=== PATIENT | female | born 1945 | race Two or more races ===

== ENCOUNTER → 2018-04-09 | Outpatient (CLI) | payer OTHER ==
[~2018-04-09] MED LIST: None per pt
[2018-04-09 11:35] LABS: BASOPHILS # (AUTO) 0.03 x10^3/uL (0-0.1); BASOPHILS % (AUTO) 0 % (0-1); EOSINOPHILS # (AUTO) 0.17 x10^3/uL (0-0.4); EOSINOPHILS % (AUTO) 3 % (1-7); LYMPHOCYTES # (AUTO) 1.88 x10^3/uL (1-3.4); LYMPHOCYTES % (AUTO) 33 % (22-44); MD NO; MEAN CORPUSCULAR HGB CONC 33.2 g/dL (32.4-35.8); MEAN CORPUSCULAR VOLUME 93.1 fL (80-100); MEAN PLATELET VOLUME 8.1 fL (7.4-10.4); MONOCYTES # (AUTO) 0.44 x10^3/uL (0.2-0.8); MONOCYTES % (AUTO) 8 % (2-9); NEUTROPHILS # (AUTO) 3.26 x10^3/uL (1.8-6.8); NEUTROPHILS % (AUTO) 57 % (42-75); PLATELET COUNT 247 x10^3/uL (130-400); RED BLOOD COUNT 4.55 x10^6/uL (3.82-5.3); RED CELL DISTRIBUTION WIDTH 14.2 % (9.6-15.2)
[2018-04-09 11:44] LABS: INTERNATIONAL NORMALIZED RATIO 0.96 (0.93-1.1); PROTHROMBIN TIME 10.2 Seconds (9.6-11.5)
[2018-04-09 11:49] LABS: CHLORIDE 105 mmol/L (98-107)
[2018-04-09 12:02] LABS: ALANINE AMINOTRANSFERASE 27 U/L (12-78); ALBUMIN 3.5 g/dL (3.4-5.0); ALKALINE PHOSPHATASE 49 U/L (45-117); ANION GAP 7 mmol/L (5-15); BILIRUBIN,TOTAL 0.4 mg/dL (0.2-1.0); CALCIUM 8.8 mg/dL (8.5-10.1); CREATININE 0.63 mg/dL (0.55-1.02)
== END | disposition home or self-care (01) ==
LOC: STAR 10:14
PROVIDERS: ATTEND Specialist
DX: Z01.818 Encounter for other preprocedural examination (principal); R19.01 Right upper quadrant abdominal swelling, mass and lump; R97.1 Elevated cancer antigen 125 [CA 125]
CPT/HCPCS: 36415; 71046; 80053; 85025; 85610; 85730; 93005

== ENCOUNTER 2018-04-16 12:07 | Inpatient (IN) | payer OTHER ==
[~2018-04-16] VITALS: Ht 162.6 cm; Wt 82.8 kg
[2018-04-16] MEDS ORDERED: LACTATED RINGERS 1,000 ML IV SCH (12:50)
[2018-04-16] MEDS ORDERED: ONDANSETRON ODT 8 MG PO ONE (13:00)
[2018-04-16] MEDS ORDERED: ACETAMINOPHEN 500 MG TABLET PO ONE (13:00)
[2018-04-16] MEDS ORDERED: GABAPENTIN 300 MG CAPSULE PO ONE (13:00)
[2018-04-16] MEDS ORDERED: SUCCINYLCHOLINE 20 MG/ML, 10ML ONE (15:55)
[2018-04-16] MEDS ORDERED: MIDAZOLAM 1 MG/ML, 2ML ONE (15:55)
[2018-04-16] MEDS ORDERED: FENTANYL PF 100 MCG/2ML ONE ×2 (15:55→19:34)
[2018-04-16] MEDS ORDERED: PROPOFOL 10 MG/ML, 20ML ONE (15:55)
[2018-04-16] MEDS ORDERED: ROCURONIUM 10MG/ML,5ML ONE (15:56)
[2018-04-16] MEDS ORDERED: DEXAMETHASONE 4 MG/ML, 1ML ONE ×2 (15:56)
[2018-04-16] MEDS ORDERED: CEFAZOLIN 1,000 MG ONE ×2 (15:56)
[2018-04-16] MEDS ORDERED: EPHEDRINE 50 MG/ML, 1ML ONE (16:53)
[2018-04-16] MEDS ORDERED: KETAMINE 10 MG/ML, 20ML ONE (16:53)
[2018-04-16] MEDS ORDERED: LIDOCAINE 2% 100MG/5ML SYRINGE ONE (16:53)
[2018-04-16] MEDS ORDERED: SCOPOLAMINE PATCH, 1.5MG PATCH.TD72 TD PRN (17:30)
[2018-04-16] MEDS ORDERED: hydrALAzine 20 MG/ML, 1ML IV PRN (17:30)
[2018-04-16] MEDS ORDERED: MEPERIDINE/PF 25MG/0.5ML IVPush PRN (17:30)
[2018-04-16] MEDS ORDERED: DIAZEPAM 5 MG/ML, 2ML IVPush PRN (17:30)
[2018-04-16] MEDS ORDERED: LABETALOL 5MG/ML, 20ML IV PRN (17:30)
[2018-04-16] MEDS ORDERED: LORazepam 2 MG/ML, 1ML IVPush PRN (17:30)
[2018-04-16] MEDS ORDERED: FENTANYL PF 100 MCG/2ML IV PRN (17:30)
[2018-04-16] MEDS ORDERED: METOCLOPRAMIDE 5 MG/ML, 2ML IV PRN (17:30)
[2018-04-16] MEDS ORDERED: OXYcodone 5 MG/5 ML ORAL.SOL UDC PO PRN (17:30)
[2018-04-16] MEDS ORDERED: HYDROmorphone 1 MG/ML, 1ML IV PRN (17:30)
[2018-04-16] MEDS ORDERED: ALBUMIN HUMAN 25% 50 ML ONE (21:38)
[2018-04-16] MEDS ORDERED: ALBUMIN HUMAN 25% 50 ML IV SCH (22:00)
[2018-04-16] MEDS ORDERED: LACTATED RINGERS 500 ML IVBOLUS ONE (22:00)
[2018-04-16] MEDS: KETOROLAC 30 MG/1 ML IVPush SCH (23:30)
[2018-04-16] MEDS: FAMOTIDINE 20 MG/2 ML IV SCH (23:30)
[2018-04-16] MEDS: POTASSIUM CHLORIDE 20 MEQ in D5%-0.45% NACL 1,000 ML IV SCH (23:37)
[2018-04-17 00:12] VITALS: BP 105/71
[2018-04-17 04:09] VITALS: BP 94/61
[2018-04-17 06:08] LABS: BASOPHILS % (AUTO) 0 % (0-1); EOSINOPHILS % (AUTO) 0 % (1-7); LYMPHOCYTES # (AUTO) 0.61 x10^3/uL (1-3.4); LYMPHOCYTES % (AUTO) 7 % (22-44); MD NO; MEAN CORPUSCULAR HEMOGLOBIN 31.3 pg (27.0-34.8); MEAN CORPUSCULAR HGB CONC 33.5 g/dL (32.4-35.8); MEAN CORPUSCULAR VOLUME 93.3 fL (80-100); MEAN PLATELET VOLUME 8.6 fL (7.4-10.4); MONOCYTES # (AUTO) 0.73 x10^3/uL (0.2-0.8); MONOCYTES % (AUTO) 8 % (2-9); NEUTROPHILS # (AUTO) 7.61 x10^3/uL (1.8-6.8); NEUTROPHILS % (AUTO) 85 % (42-75); PLATELET COUNT 247 x10^3/uL (130-400); RED BLOOD COUNT 3.94 x10^6/uL (3.82-5.3); RED CELL DISTRIBUTION WIDTH 13.7 % (9.6-15.2)
[2018-04-17 06:15] LABS: ALBUMIN 2.8 g/dL (3.4-5.0); ANION GAP 10 mmol/L (5-15); CALCIUM 7.6 mg/dL (8.5-10.1); CHLORIDE 105 mmol/L (98-107); CREATININE 1.26 mg/dL (0.55-1.02)
[2018-04-17] MEDS: POTASSIUM CHLORIDE 20 MEQ in D5%-0.45% NACL 1,000 ML IV SCH (06:25)
[2018-04-17] MEDS: KETOROLAC 30 MG/1 ML IVPush SCH ×3 (06:26→21:11)
[2018-04-17 07:13] VITALS: BP 108/63
[2018-04-17] MEDS ORDERED: SODIUM CHLORIDE 0.9%, 500ML IVBOLUS ONE ×2 (09:30→17:00)
[2018-04-17] MEDS: FAMOTIDINE 20 MG/2 ML IV SCH ×2 (09:41→21:11)
[2018-04-17] MEDS: ONDANSETRON 2MG/ML, 2ML IVPush PRN (11:28)
[2018-04-17] MEDS: SODIUM CHLORIDE 0.9% 1,000 ML IV SCH ×2 (11:31→18:35)
[2018-04-17 14:50] VITALS: BP 113/66
[2018-04-17 19:08] VITALS: BP 118/69
[2018-04-18] MEDS: SODIUM CHLORIDE 0.9% 1,000 ML IV SCH ×4 (01:25→23:03)
[2018-04-18 03:45] VITALS: BP 112/62
[2018-04-18] MEDS: KETOROLAC 30 MG/1 ML IVPush SCH ×3 (04:02→15:12)
[2018-04-18 04:20] LABS: BASOPHILS % (AUTO) 0 % (0-1); EOSINOPHILS # (AUTO) 0.02 x10^3/uL (0-0.4); EOSINOPHILS % (AUTO) 0 % (1-7); LYMPHOCYTES # (AUTO) 1.04 x10^3/uL (1-3.4); LYMPHOCYTES % (AUTO) 15 % (22-44); MD NO; MEAN CORPUSCULAR HEMOGLOBIN 30.2 pg (27.0-34.8); MEAN CORPUSCULAR HGB CONC 32.7 g/dL (32.4-35.8); MEAN CORPUSCULAR VOLUME 92.4 fL (80-100); MEAN PLATELET VOLUME 8.2 fL (7.4-10.4); MONOCYTES % (AUTO) 9 % (2-9); NEUTROPHILS # (AUTO) 5.09 x10^3/uL (1.8-6.8); NEUTROPHILS % (AUTO) 75 % (42-75); PLATELET COUNT 174 x10^3/uL (130-400); RED BLOOD COUNT 3.07 x10^6/uL (3.82-5.3); RED CELL DISTRIBUTION WIDTH 13.7 % (9.6-15.2)
[2018-04-18 08:35] VITALS: BP 108/70
[2018-04-18] MEDS: FAMOTIDINE 20 MG/2 ML IV SCH ×2 (08:48→23:02)
[2018-04-18 13:38] VITALS: BP 119/71
[2018-04-18 18:44] VITALS: BP 120/79
[2018-04-19 01:11] VITALS: BP 117/80
[2018-04-19] MEDS: SODIUM CHLORIDE 0.9% 1,000 ML IV SCH ×4 (05:08→23:59)
[2018-04-19 05:17] LABS: MEAN CORPUSCULAR HEMOGLOBIN 30.9 pg (27.0-34.8); MEAN CORPUSCULAR HGB CONC 33.5 g/dL (32.4-35.8); MEAN CORPUSCULAR VOLUME 92.4 fL (80-100); MEAN PLATELET VOLUME 8.1 fL (7.4-10.4); PLATELET COUNT 142 x10^3/uL (130-400); RED BLOOD COUNT 2.77 x10^6/uL (3.82-5.3); RED CELL DISTRIBUTION WIDTH 13.3 % (9.6-15.2)
[2018-04-19 05:22] LABS: ANION GAP 8 mmol/L (5-15); CALCIUM 7.2 mg/dL (8.5-10.1); CHLORIDE 111 mmol/L (98-107); CREATININE 0.49 mg/dL (0.55-1.02)
[2018-04-19 05:46] LABS: MD YES
[2018-04-19 05:52] LABS: <PLATELET ESTIMATE> ADEQUATE; ANISOCYTOSIS 1+; BAND#(MANUAL) 0.65 x10^3/uL; BANDS%(MANUAL) 11 % (0-7); LYMPH#(MANUAL) 0.77 x10^3/uL (1-3.4); LYMPHS% (MANUAL) 13 % (22-44); MONOS#(MANUAL) 0.18 x10^3/uL (0.3-2.7); MONOS% (MANUAL) 3 % (2-9); OVALOCYTES 1+; SEG#(MANUAL) 4.31 x10^3/uL (1.8-6.8); SEGS% (MANUAL) 73 % (42-75)
[2018-04-19 05:53] LABS: <PLT MORPHOLOGY> NORMAL PLT MORPH
[2018-04-19 07:50] VITALS: BP 117/73
[2018-04-19] MEDS: FAMOTIDINE 20 MG/2 ML IV SCH ×2 (08:53→21:07)
[2018-04-19] MEDS: ONDANSETRON 2MG/ML, 2ML IVPush PRN (11:37)
[2018-04-19 13:10] VITALS: BP 127/77
[2018-04-19] MEDS: PROCHLORPERAZINE 5 MG/ML, 2ML IVPush PRN (13:21)
[2018-04-19] MEDS ORDERED: KETOROLAC 30 MG/1 ML IVPush PRN (13:30)
[2018-04-19 19:03] VITALS: BP 119/74
[2018-04-20 00:01] VITALS: BP 112/77
[2018-04-20 05:22] LABS: MEAN CORPUSCULAR HEMOGLOBIN 31.3 pg (27.0-34.8); MEAN CORPUSCULAR HGB CONC 33.5 g/dL (32.4-35.8); MEAN CORPUSCULAR VOLUME 93.5 fL (80-100); MEAN PLATELET VOLUME 8.1 fL (7.4-10.4); PLATELET COUNT 184 x10^3/uL (130-400); RED BLOOD COUNT 2.98 x10^6/uL (3.82-5.3); RED CELL DISTRIBUTION WIDTH 13.4 % (9.6-15.2)
[2018-04-20 05:24] LABS: CHLORIDE 114 mmol/L (98-107)
[2018-04-20 05:34] LABS: ALANINE AMINOTRANSFERASE 16 U/L (12-78); ALBUMIN 1.8 g/dL (3.4-5.0); ALKALINE PHOSPHATASE 28 U/L (45-117); ANION GAP 12 mmol/L (5-15); BILIRUBIN,TOTAL 0.5 mg/dL (0.2-1.0); CALCIUM 7.7 mg/dL (8.5-10.1); CREATININE 0.48 mg/dL (0.55-1.02)
[2018-04-20 05:47] LABS: MD YES
[2018-04-20 05:53] LABS: BAND#(MANUAL) 1.25 x10^3/uL; BANDS%(MANUAL) 32 % (0-7); EOS% (MANUAL) 5 % (1-7); LYMPH#(MANUAL) 0.82 x10^3/uL (1-3.4); LYMPHS% (MANUAL) 21 % (22-44); METAMYELOCYTES# (MANUAL) 0.12 x10^3/uL (0-0); METAMYELOCYTES% (MANUAL) 3 % (0-1); MONOS#(MANUAL) 0.47 x10^3/uL (0.3-2.7); MONOS% (MANUAL) 12 % (2-9); SEG#(MANUAL) 1.05 x10^3/uL (1.8-6.8); SEGS% (MANUAL) 27 % (42-75)
[2018-04-20 05:54] LABS: <PLATELET ESTIMATE> ADEQUATE; <PLT MORPHOLOGY> NORMAL PLT MORPH; ANISOCYTOSIS 1+; OVALOCYTES 1+; POLYCHROMASIA 1+
[2018-04-20] MEDS: SODIUM CHLORIDE 0.9% 1,000 ML IV SCH (06:36)
[2018-04-20 08:07] VITALS: BP 109/67
[2018-04-20 08:15] VITALS: BP 122/75
[2018-04-20] MEDS ORDERED: OXYcodone/APAP 5/325MG TABLET PO PRN (10:00)
[2018-04-20 10:33] LABS: CLOSTRIDIUM DIFFICILE ANTIGEN NEGATIVE; CLOSTRIDIUM DIFFICILE TOXIN NEGATIVE (Negative)
[2018-04-20] MEDS: D5%-0.45NACL+KCL 20MEQ 1,000 ML IV SCH ×2 (10:35→23:52)
[2018-04-20] MEDS: ENOXAPARIN 40 MG/0.4 ML SQ SCH (10:35)
[2018-04-20] MEDS: FAMOTIDINE 20 MG/2 ML IV SCH ×2 (10:35→20:19)
[2018-04-20] MEDS: KETOROLAC 30 MG/1 ML IVPush PRN (11:32)
[2018-04-20] MEDS: PROCHLORPERAZINE 5 MG/ML, 2ML IVPush PRN (11:32)
[2018-04-20 13:52] VITALS: BP 96/64
[2018-04-20] MEDS: ONDANSETRON 2MG/ML, 2ML IVPush PRN (19:19)
[2018-04-20 20:14] VITALS: BP 120/74
[2018-04-21 01:56] VITALS: BP 113/69
[2018-04-21] MEDS: ONDANSETRON 2MG/ML, 2ML IVPush PRN ×3 (05:08→17:49)
[2018-04-21] MEDS: KETOROLAC 30 MG/1 ML IVPush PRN (05:08)
[2018-04-21 05:40] LABS: MEAN CORPUSCULAR HGB CONC 33.9 g/dL (32.4-35.8); MEAN CORPUSCULAR VOLUME 91.5 fL (80-100); MEAN PLATELET VOLUME 7.6 fL (7.4-10.4); PLATELET COUNT 210 x10^3/uL (130-400); RED CELL DISTRIBUTION WIDTH 13.2 % (9.6-15.2)
[2018-04-21 05:51] LABS: ANION GAP 8 mmol/L (5-15); CALCIUM 7.7 mg/dL (8.5-10.1); CHLORIDE 113 mmol/L (98-107); CREATININE 0.58 mg/dL (0.55-1.02)
[2018-04-21 06:11] LABS: MD YES
[2018-04-21 06:18] LABS: <PLATELET ESTIMATE> ADEQUATE; <PLT MORPHOLOGY> NORMAL PLT MORPH; ANISOCYTOSIS 1+; BAND#(MANUAL) 1.73 x10^3/uL; BANDS%(MANUAL) 27 % (0-7); EOS#(MANUAL) 0.13 x10^3/uL (0.0-0.4); EOS% (MANUAL) 2 % (1-7); LYMPH#(MANUAL) 0.83 x10^3/uL (1-3.4); LYMPHS% (MANUAL) 13 % (22-44); METAMYELOCYTES# (MANUAL) 0.32 x10^3/uL (0-0); METAMYELOCYTES% (MANUAL) 5 % (0-1); MONOS#(MANUAL) 0.26 x10^3/uL (0.3-2.7); MONOS% (MANUAL) 4 % (2-9); SEG#(MANUAL) 3.14 x10^3/uL (1.8-6.8); SEGS% (MANUAL) 49 % (42-75); TOXIC GRAN 1+
[2018-04-21 07:52] VITALS: BP 118/71
[2018-04-21] MEDS: ENOXAPARIN 40 MG/0.4 ML SQ SCH (09:50)
[2018-04-21] MEDS: FAMOTIDINE 20 MG/2 ML IV SCH ×2 (09:50→20:48)
[2018-04-21 13:12] VITALS: BP 117/79
[2018-04-21] MEDS: D5%-0.45NACL+KCL 20MEQ 1,000 ML IV SCH (14:53)
[2018-04-21 19:17] VITALS: BP 102/68
[2018-04-22 01:02] VITALS: BP 105/70
[2018-04-22 01:18] VITALS: BP 148/64
[2018-04-22] MEDS: D5%-0.45NACL+KCL 20MEQ 1,000 ML IV SCH ×2 (02:10→16:10)
[2018-04-22 08:58] VITALS: BP 107/71
[2018-04-22] MEDS: FAMOTIDINE 20 MG/2 ML IV SCH ×2 (09:36→21:23)
[2018-04-22] MEDS: ENOXAPARIN 40 MG/0.4 ML SQ SCH (09:36)
[2018-04-22] MEDS: KETOROLAC 30 MG/1 ML IVPush PRN ×2 (10:01→21:23)
[2018-04-22 13:30] VITALS: BP 104/67
[2018-04-22] MEDS: ONDANSETRON 2MG/ML, 2ML IVPush PRN (16:47)
[2018-04-22 19:36] VITALS: BP 117/75
[2018-04-23 00:37] VITALS: BP 112/75
[2018-04-23] MEDS: D5%-0.45NACL+KCL 20MEQ 1,000 ML IV SCH (05:15)
[2018-04-23 08:11] VITALS: BP 110/72
[2018-04-23] MEDS: FAMOTIDINE 20 MG/2 ML IV SCH (09:56)
[2018-04-23] MEDS: ENOXAPARIN 40 MG/0.4 ML SQ SCH (09:57)
[2018-04-23 12:56] VITALS: BP 125/77
[2018-04-23 14:36] LABS: ANION GAP 7 mmol/L (5-15); CALCIUM 7.1 mg/dL (8.5-10.1); CHLORIDE 106 mmol/L (98-107); CREATININE 0.47 mg/dL (0.55-1.02)
[2018-04-23 14:41] LABS: MEAN CORPUSCULAR HEMOGLOBIN 30.5 pg (27.0-34.8); MEAN CORPUSCULAR HGB CONC 33.4 g/dL (32.4-35.8); MEAN CORPUSCULAR VOLUME 91.5 fL (80-100); MEAN PLATELET VOLUME 7.7 fL (7.4-10.4); PLATELET COUNT 247 x10^3/uL (130-400); RED BLOOD COUNT 2.89 x10^6/uL (3.82-5.3); RED CELL DISTRIBUTION WIDTH 13.4 % (9.6-15.2)
[2018-04-23 15:57] LABS: MD YES
[2018-04-23 16:00] LABS: ANISOCYTOSIS 1+; BAND#(MANUAL) 3.45 x10^3/uL; BANDS%(MANUAL) 22 % (0-7); EOS#(MANUAL) 0.16 x10^3/uL (0.0-0.4); EOS% (MANUAL) 1 % (1-7); LYMPHS% (MANUAL) 14 % (22-44); METAMYELOCYTES# (MANUAL) 0.47 x10^3/uL (0-0); METAMYELOCYTES% (MANUAL) 3 % (0-1); MONOS#(MANUAL) 0.63 x10^3/uL (0.3-2.7); MONOS% (MANUAL) 4 % (2-9); SEG#(MANUAL) 8.79 x10^3/uL (1.8-6.8); SEGS% (MANUAL) 56 % (42-75)
[2018-04-23 16:01] LABS: OVALOCYTES 1+
[2018-04-23 16:02] LABS: <PLATELET ESTIMATE> ADEQUATE; <PLT MORPHOLOGY> NORMAL PLT MORPH
[2018-04-23 19:36] VITALS: BP 117/72
[2018-04-23] MEDS: POTASSIUM CHLORIDE 20 MEQ TAB.ER.PRT PO SCH (20:27)
[2018-04-23] MEDS: FAMOTIDINE 20 MG TABLET PO SCH (20:27)
[2018-04-24 02:15] VITALS: BP 103/62
[2018-04-24 05:11] LABS: MEAN CORPUSCULAR HEMOGLOBIN 30.3 pg (27.0-34.8); MEAN CORPUSCULAR VOLUME 91.7 fL (80-100); MEAN PLATELET VOLUME 7.9 fL (7.4-10.4); PLATELET COUNT 242 x10^3/uL (130-400); RED BLOOD COUNT 2.96 x10^6/uL (3.82-5.3); RED CELL DISTRIBUTION WIDTH 13.6 % (9.6-15.2)
[2018-04-24 05:26] LABS: CHLORIDE 104 mmol/L (98-107)
[2018-04-24 05:30] LABS: ANION GAP 8 mmol/L (5-15); CALCIUM 7.3 mg/dL (8.5-10.1)
[2018-04-24 05:43] LABS: MD YES
[2018-04-24 05:45] LABS: METAMYELOCYTES# (MANUAL) 0.16 x10^3/uL (0-0); METAMYELOCYTES% (MANUAL) 1 % (0-1); MONOS#(MANUAL) 1.25 x10^3/uL (0.3-2.7); MONOS% (MANUAL) 8 % (2-9); MYELOCYTES# (MANUAL) 0.31 x10^3/uL (0-0); MYELOCYTES% (MANUAL) 2 % (0-0)
[2018-04-24 05:46] LABS: BANDS%(MANUAL) 9 % (0-7); EOS#(MANUAL) 0.16 x10^3/uL (0.0-0.4); EOS% (MANUAL) 1 % (1-7); LYMPH#(MANUAL) 0.94 x10^3/uL (1-3.4); LYMPHS% (MANUAL) 6 % (22-44); SEG#(MANUAL) 11.39 x10^3/uL (1.8-6.8); SEGS% (MANUAL) 73 % (42-75); TOXIC GRAN 1+
[2018-04-24 05:47] LABS: ANISOCYTOSIS 1+; OVALOCYTES 1+; POLYCHROMASIA 1+
[2018-04-24 05:48] LABS: <PLATELET ESTIMATE> ADEQUATE; <PLT MORPHOLOGY> NORMAL PLT MORPH
[2018-04-24 07:37] VITALS: BP 115/73
[2018-04-24] MEDS: POTASSIUM CHLORIDE 20 MEQ TAB.ER.PRT PO SCH ×2 (08:49→21:00)
[2018-04-24] MEDS: FAMOTIDINE 20 MG TABLET PO SCH ×2 (08:50→19:40)
[2018-04-24] MEDS ORDERED: POTASSIUM CHLORIDE 20 MEQ in SODIUM CHLORIDE 0.9% 250 ML IV ONE (11:00)
[2018-04-24] MEDS: ENOXAPARIN 40 MG/0.4 ML SQ SCH (11:20)
[2018-04-24 14:14] VITALS: BP 120/80
[2018-04-24 18:50] VITALS: BP 134/83
[2018-04-25 01:50] VITALS: BP 124/79
[2018-04-25 04:29] LABS: MEAN CORPUSCULAR HEMOGLOBIN 30.9 pg (27.0-34.8); MEAN CORPUSCULAR HGB CONC 33.5 g/dL (32.4-35.8); MEAN CORPUSCULAR VOLUME 92.3 fL (80-100); MEAN PLATELET VOLUME 7.6 fL (7.4-10.4); PLATELET COUNT 361 x10^3/uL (130-400); RED BLOOD COUNT 3.33 x10^6/uL (3.82-5.3); RED CELL DISTRIBUTION WIDTH 13.6 % (9.6-15.2)
[2018-04-25 04:41] LABS: ALBUMIN 1.9 g/dL (3.4-5.0); ANION GAP 5 mmol/L (5-15); CALCIUM 7.3 mg/dL (8.5-10.1); CHLORIDE 101 mmol/L (98-107)
[2018-04-25 04:46] LABS: ALANINE AMINOTRANSFERASE 28 U/L (12-78); ALKALINE PHOSPHATASE 67 U/L (45-117); BILIRUBIN,TOTAL 0.6 mg/dL (0.2-1.0); CREATININE 0.52 mg/dL (0.55-1.02); TOTAL PROTEIN 5.4 g/dL (6.4-8.2)
[2018-04-25 05:09] LABS: MD YES
[2018-04-25 05:10] LABS: BAND#(MANUAL) 1.18 x10^3/uL; BANDS%(MANUAL) 6 % (0-7); EOS% (MANUAL) 1 % (1-7); LYMPH#(MANUAL) 2.76 x10^3/uL (1-3.4); LYMPHS% (MANUAL) 14 % (22-44); METAMYELOCYTES# (MANUAL) 0.39 x10^3/uL (0-0); METAMYELOCYTES% (MANUAL) 2 % (0-1); MONOS#(MANUAL) 0.79 x10^3/uL (0.3-2.7); MONOS% (MANUAL) 4 % (2-9); MYELOCYTES% (MANUAL) 1 % (0-0); SEG#(MANUAL) 14.18 x10^3/uL (1.8-6.8); SEGS% (MANUAL) 72 % (42-75)
[2018-04-25 05:11] LABS: <PLATELET ESTIMATE> ADEQUATE; <PLT MORPHOLOGY> NORMAL PLT MORPH; ANISOCYTOSIS 1+; OVALOCYTES 1+; POLYCHROMASIA 1+; TOXIC GRAN 1+
[2018-04-25 07:33] VITALS: BP 140/83
[2018-04-25] MEDS: FAMOTIDINE 20 MG TABLET PO SCH ×2 (08:07→19:54)
[2018-04-25] MEDS: POTASSIUM CHLORIDE 20 MEQ TAB.ER.PRT PO SCH ×2 (08:07→19:54)
[2018-04-25] MEDS: ENOXAPARIN 40 MG/0.4 ML SQ SCH (08:07)
[2018-04-25 13:20] VITALS: BP 135/79
[2018-04-25] MEDS ORDERED: MAGNESIUM SULFATE PMX 2GM/50ML 50 ML IV ONE (15:00)
[2018-04-25] MEDS: POTASSIUM CHLORIDE 20 MEQ in SODIUM CHLORIDE 0.9% 250 ML IV ONE ×2 (15:00→18:17)
[2018-04-25 15:03] LABS: MEAN CORPUSCULAR HEMOGLOBIN 30.9 pg (27.0-34.8); MEAN CORPUSCULAR HGB CONC 33.5 g/dL (32.4-35.8); MEAN CORPUSCULAR VOLUME 92.1 fL (80-100); MEAN PLATELET VOLUME 7.7 fL (7.4-10.4); PLATELET COUNT 366 x10^3/uL (130-400); RED BLOOD COUNT 3.31 x10^6/uL (3.82-5.3); RED CELL DISTRIBUTION WIDTH 13.6 % (9.6-15.2)
[2018-04-25 15:10] LABS: ANION GAP 9 mmol/L (5-15); CALCIUM 7.8 mg/dL (8.5-10.1); CHLORIDE 99 mmol/L (98-107)
[2018-04-25 15:32] LABS: MD YES
[2018-04-25 15:35] LABS: BAND#(MANUAL) 2.08 x10^3/uL; BANDS%(MANUAL) 11 % (0-7); LYMPH#(MANUAL) 1.13 x10^3/uL (1-3.4); LYMPHS% (MANUAL) 6 % (22-44); METAMYELOCYTES# (MANUAL) 0.76 x10^3/uL (0-0); METAMYELOCYTES% (MANUAL) 4 % (0-1); MONOS#(MANUAL) 1.13 x10^3/uL (0.3-2.7); MONOS% (MANUAL) 6 % (2-9); MYELOCYTES# (MANUAL) 0.57 x10^3/uL (0-0); MYELOCYTES% (MANUAL) 3 % (0-0); NRBC % (MANUAL) 1 % (0-1); SEG#(MANUAL) 13.23 x10^3/uL (1.8-6.8); SEGS% (MANUAL) 70 % (42-75)
[2018-04-25 15:38] LABS: POLYCHROMASIA 1+
[2018-04-25 15:39] LABS: <PLATELET ESTIMATE> ADEQUATE; <PLT MORPHOLOGY> NORMAL PLT MORPH; OVALOCYTES 1+; TOXIC GRAN 1+
[2018-04-25 17:37] LABS: CULTURE INDICATED? YES; MICROSCOPIC INDICATED
[2018-04-25 18:59] VITALS: BP 126/73
[2018-04-25] MEDS: LOPERAMIDE 2 MG CAPSULE PO PRN (19:54)
[2018-04-25] MEDS: CEFTRIAXONE PMX 2GM/50ML 50 ML IV SCH (20:02)
[2018-04-26] MEDS: LOPERAMIDE 2 MG CAPSULE PO PRN (01:48)
[2018-04-26 02:03] VITALS: BP 118/65
[2018-04-26 04:54] LABS: ANION GAP 8 mmol/L (5-15); CALCIUM 6.9 mg/dL (8.5-10.1); CHLORIDE 102 mmol/L (98-107)
[2018-04-26 04:55] LABS: CREATININE 0.44 mg/dL (0.55-1.02)
[2018-04-26 05:02] LABS: MEAN CORPUSCULAR HEMOGLOBIN 30.8 pg (27.0-34.8); MEAN CORPUSCULAR HGB CONC 33.7 g/dL (32.4-35.8); MEAN CORPUSCULAR VOLUME 91.2 fL (80-100); MEAN PLATELET VOLUME 7.9 fL (7.4-10.4); PLATELET COUNT 346 x10^3/uL (130-400); RED BLOOD COUNT 2.93 x10^6/uL (3.82-5.3); RED CELL DISTRIBUTION WIDTH 13.8 % (9.6-15.2)
[2018-04-26 05:33] LABS: MD YES
[2018-04-26 05:36] LABS: BAND#(MANUAL) 2.04 x10^3/uL; BANDS%(MANUAL) 14 % (0-7); EOS#(MANUAL) 0.15 x10^3/uL (0.0-0.4); EOS% (MANUAL) 1 % (1-7); LYMPH#(MANUAL) 1.17 x10^3/uL (1-3.4); LYMPHS% (MANUAL) 8 % (22-44); METAMYELOCYTES# (MANUAL) 0.15 x10^3/uL (0-0); METAMYELOCYTES% (MANUAL) 1 % (0-1); MONOS#(MANUAL) 1.17 x10^3/uL (0.3-2.7); MONOS% (MANUAL) 8 % (2-9); SEG#(MANUAL) 9.93 x10^3/uL (1.8-6.8); SEGS% (MANUAL) 68 % (42-75)
[2018-04-26 05:39] LABS: POLYCHROMASIA 1+
[2018-04-26 05:40] LABS: <PLATELET ESTIMATE> ADEQUATE; <PLT MORPHOLOGY> NORMAL PLT MORPH
[2018-04-26 07:21] VITALS: BP 114/67
[2018-04-26] MEDS: ENOXAPARIN 40 MG/0.4 ML SQ SCH (08:48)
[2018-04-26] MEDS: FAMOTIDINE 20 MG TABLET PO SCH ×2 (08:48→21:19)
[2018-04-26] MEDS: CEFTRIAXONE PMX 2GM/50ML 50 ML IV SCH ×2 (08:48→21:19)
[2018-04-26] MEDS: POTASSIUM CHLORIDE 20 MEQ TAB.ER.PRT PO SCH ×2 (08:48→21:19)
[2018-04-26 12:26] VITALS: BP 123/75
[2018-04-26 20:01] VITALS: BP 128/77
[2018-04-26] MEDS ORDERED: CIPROFLOXACIN 500 MG TABLET PO SCH (21:00)
[2018-04-27 01:11] VITALS: BP 125/71
[2018-04-27 05:50] LABS: MEAN CORPUSCULAR HEMOGLOBIN 30.5 pg (27.0-34.8); MEAN CORPUSCULAR HGB CONC 33.1 g/dL (32.4-35.8); MEAN CORPUSCULAR VOLUME 92.2 fL (80-100); PLATELET COUNT 359 x10^3/uL (130-400); RED BLOOD COUNT 2.93 x10^6/uL (3.82-5.3); RED CELL DISTRIBUTION WIDTH 13.6 % (9.6-15.2)
[2018-04-27 05:54] LABS: CHLORIDE 101 mmol/L (98-107)
[2018-04-27 06:03] LABS: ALANINE AMINOTRANSFERASE 21 U/L (12-78); ALBUMIN 1.7 g/dL (3.4-5.0); ALKALINE PHOSPHATASE 61 U/L (45-117); BILIRUBIN,TOTAL 0.3 mg/dL (0.2-1.0); CALCIUM 7.7 mg/dL (8.5-10.1); CREATININE 0.53 mg/dL (0.55-1.02)
[2018-04-27 06:06] LABS: ANION GAP 8 mmol/L (5-15)
[2018-04-27 06:30] LABS: MD YES
[2018-04-27 06:34] LABS: BANDS%(MANUAL) 8 % (0-7); EOS#(MANUAL) 0.14 x10^3/uL (0.0-0.4); EOS% (MANUAL) 1 % (1-7); LYMPH#(MANUAL) 1.38 x10^3/uL (1-3.4); LYMPHS% (MANUAL) 10 % (22-44); METAMYELOCYTES# (MANUAL) 0.83 x10^3/uL (0-0); METAMYELOCYTES% (MANUAL) 6 % (0-1); MONOS#(MANUAL) 0.55 x10^3/uL (0.3-2.7); MONOS% (MANUAL) 4 % (2-9); MYELOCYTES# (MANUAL) 0.14 x10^3/uL (0-0); MYELOCYTES% (MANUAL) 1 % (0-0); SEG#(MANUAL) 9.66 x10^3/uL (1.8-6.8); SEGS% (MANUAL) 70 % (42-75)
[2018-04-27 06:35] LABS: ANISOCYTOSIS 1+; POLYCHROMASIA 1+
[2018-04-27 06:36] LABS: <PLATELET ESTIMATE> ADEQUATE; <PLT MORPHOLOGY> NORMAL PLT MORPH
[2018-04-27 06:37] VITALS: BP 115/68
[2018-04-27] MEDS: POTASSIUM CHLORIDE 20 MEQ TAB.ER.PRT PO SCH ×2 (08:10→20:27)
[2018-04-27] MEDS: CEFTRIAXONE PMX 2GM/50ML 50 ML IV SCH (08:10)
[2018-04-27] MEDS: FAMOTIDINE 20 MG TABLET PO SCH ×2 (08:10→20:27)
[2018-04-27] MEDS: ENOXAPARIN 40 MG/0.4 ML SQ SCH (08:10)
[2018-04-27] MEDS ORDERED: CIPROFLOXACIN 500 MG TABLET PO SCH (10:30)
[2018-04-27] MEDS ORDERED: MAGNESIUM SULFATE PMX 2GM/50ML 50 ML IVPB ONE (10:30)
[2018-04-27 14:23] VITALS: BP 134/68
[2018-04-27 18:48] VITALS: BP 126/79
[2018-04-27] MEDS: LOPERAMIDE 2 MG CAPSULE PO PRN (22:05)
[2018-04-28 00:07] VITALS: BP 113/66
[2018-04-28] MEDS: LOPERAMIDE 2 MG CAPSULE PO PRN (07:53)
[2018-04-28] MEDS: FAMOTIDINE 20 MG TABLET PO SCH ×2 (07:53→19:59)
[2018-04-28] MEDS: POTASSIUM CHLORIDE 20 MEQ TAB.ER.PRT PO SCH ×2 (07:53→19:59)
[2018-04-28 07:55] VITALS: BP 120/72
[2018-04-28] MEDS ORDERED: CEFTRIAXONE PMX 2GM/50ML 50 ML IV SCH (08:00)
[2018-04-28] MEDS: ENOXAPARIN 40 MG/0.4 ML SQ SCH (10:40)
[2018-04-28 13:00] VITALS: BP 112/66
[2018-04-28 19:23] VITALS: BP 119/70
[2018-04-29 00:23] VITALS: BP 117/70
[2018-04-29 04:34] LABS: MEAN CORPUSCULAR HEMOGLOBIN 30.5 pg (27.0-34.8); MEAN CORPUSCULAR HGB CONC 33.5 g/dL (32.4-35.8); MEAN CORPUSCULAR VOLUME 91.1 fL (80-100); MEAN PLATELET VOLUME 8.2 fL (7.4-10.4); PLATELET COUNT 378 x10^3/uL (130-400); RED CELL DISTRIBUTION WIDTH 14.4 % (9.6-15.2)
[2018-04-29 04:38] LABS: MD YES
[2018-04-29 04:47] LABS: ANION GAP 8 mmol/L (5-15); CALCIUM 7.5 mg/dL (8.5-10.1); CHLORIDE 100 mmol/L (98-107)
[2018-04-29 04:48] LABS: CREATININE 0.69 mg/dL (0.55-1.02)
[2018-04-29 04:52] LABS: BAND#(MANUAL) 1.88 x10^3/uL; BANDS%(MANUAL) 14 % (0-7); EOS% (MANUAL) 3 % (1-7); LYMPH#(MANUAL) 1.34 x10^3/uL (1-3.4); LYMPHS% (MANUAL) 10 % (22-44); METAMYELOCYTES# (MANUAL) 0.13 x10^3/uL (0-0); METAMYELOCYTES% (MANUAL) 1 % (0-1); MONOS#(MANUAL) 0.94 x10^3/uL (0.3-2.7); MONOS% (MANUAL) 7 % (2-9); SEG#(MANUAL) 8.71 x10^3/uL (1.8-6.8); SEGS% (MANUAL) 65 % (42-75)
[2018-04-29 04:53] LABS: <PLATELET ESTIMATE> ADEQUATE; <PLT MORPHOLOGY> NORMAL PLT MORPH; ANISOCYTOSIS 1+; POLYCHROMASIA 1+
[2018-04-29 06:48] VITALS: BP 108/68
[2018-04-29] MEDS: FAMOTIDINE 20 MG TABLET PO SCH ×2 (09:04→20:01)
[2018-04-29] MEDS: CIPROFLOXACIN 500 MG TABLET PO SCH ×2 (09:04→20:02)
[2018-04-29] MEDS: ENOXAPARIN 40 MG/0.4 ML SQ SCH (09:04)
[2018-04-29] MEDS: metroNIDAZOLE 500 MG TABLET PO SCH ×3 (09:04→20:01)
[2018-04-29 14:45] VITALS: BP 116/77
[2018-04-29 19:23] VITALS: BP 119/76
[2018-04-30 01:11] VITALS: BP 112/72
[2018-04-30] MEDS: metroNIDAZOLE 500 MG TABLET PO SCH ×2 (02:58→08:04)
[2018-04-30 04:32] LABS: MEAN CORPUSCULAR HEMOGLOBIN 29.5 pg (27.0-34.8); MEAN CORPUSCULAR HGB CONC 32.6 g/dL (32.4-35.8); MEAN CORPUSCULAR VOLUME 90.3 fL (80-100); MEAN PLATELET VOLUME 7.4 fL (7.4-10.4); PLATELET COUNT 406 x10^3/uL (130-400); RED BLOOD COUNT 2.93 x10^6/uL (3.82-5.3); RED CELL DISTRIBUTION WIDTH 13.8 % (9.6-15.2)
[2018-04-30 05:35] LABS: MD YES
[2018-04-30 05:37] LABS: BAND#(MANUAL) 0.95 x10^3/uL; BANDS%(MANUAL) 8 % (0-7); EOS#(MANUAL) 0.12 x10^3/uL (0.0-0.4); EOS% (MANUAL) 1 % (1-7); LYMPH#(MANUAL) 1.19 x10^3/uL (1-3.4); LYMPHS% (MANUAL) 10 % (22-44); MONOS#(MANUAL) 1.07 x10^3/uL (0.3-2.7); MONOS% (MANUAL) 9 % (2-9); MYELOCYTES# (MANUAL) 0.24 x10^3/uL (0-0); MYELOCYTES% (MANUAL) 2 % (0-0); SEG#(MANUAL) 8.33 x10^3/uL (1.8-6.8); SEGS% (MANUAL) 70 % (42-75)
[2018-04-30 05:38] LABS: ANISOCYTOSIS 1+; POLYCHROMASIA 1+
[2018-04-30 05:39] LABS: <PLATELET ESTIMATE> ADEQUATE; <PLT MORPHOLOGY> NORMAL PLT MORPH
[2018-04-30 06:44] VITALS: BP 120/63
[2018-04-30] MEDS: CIPROFLOXACIN 500 MG TABLET PO SCH (08:05)
[2018-04-30] MEDS: FAMOTIDINE 20 MG TABLET PO SCH (08:05)
[2018-04-30] MEDS: ENOXAPARIN 40 MG/0.4 ML SQ SCH (10:00)
[2018-04-30] MEDS ORDERED: OXYC-302 PO (11:00)
[2018-04-30] MEDS ORDERED: ONDA4TAB7 PO (11:01)
[2018-04-30] MEDS ORDERED: METR-90 PO (11:02)
[2018-04-30] MEDS ORDERED: CIPR500T3 PO (11:02)
== END 2018-04-30 11:22 | disposition home or self-care (01) | DRG 736 ==
LOC: OUT 12:07 → 4NOR 20:03 → 3NW 04-17 12:58 → DCLOUNGE 04-30 10:55
PROVIDERS: ADMIT Specialist; ATTEND Specialist
PROC: 0UT90ZZ Resection of Uterus, Open Approach (ICD-10-PCS; 2018-04-16)
PROC: 0UT20ZZ Resection of Bilateral Ovaries, Open Approach (ICD-10-PCS; 2018-04-16)
PROC: 0UT70ZZ Resection of Bilateral Fallopian Tubes, Open Approach (ICD-10-PCS; 2018-04-16)
PROC: 0DBU0ZZ Excision of Omentum, Open Approach (ICD-10-PCS; 2018-04-16)
PROC: 0DTF0ZZ Resection of Right Large Intestine, Open Approach (ICD-10-PCS; 2018-04-16)
PROC: 0D1B0ZL Bypass Ileum to Transverse Colon, Open Approach (ICD-10-PCS; 2018-04-16)
PROC: 0DBN0ZZ Excision of Sigmoid Colon, Open Approach (ICD-10-PCS; 2018-04-16)
PROC: 8E0W0CZ Robotic Assisted Procedure of Trunk Region, Open Approach (ICD-10-PCS; 2018-04-16)
PROC: 0WJJ4ZZ Inspection of Pelvic Cavity, Percutaneous Endoscopic Approach (ICD-10-PCS; 2018-04-16)
PROC: 02H633Z Insertion of Infusion Device into Right Atrium, Percutaneous Approach (ICD-10-PCS; principal; 2018-04-16 17:00)
DX: C57.00 Malignant neoplasm of unspecified fallopian tube (principal); E43 Unspecified severe protein-calorie malnutrition; R18.8 Other ascites; K91.89 Other postprocedural complications and disorders of digestive system; N39.0 Urinary tract infection, site not specified; R78.81 Bacteremia; C56.9 Malignant neoplasm of unspecified ovary; D64.9 Anemia, unspecified; E83.42 Hypomagnesemia; E87.6 Hypokalemia; Z86.718 Personal history of other venous thrombosis and embolism; Z88.8 Allergy status to other drugs, medicaments and biological substances; Z98.49 Cataract extraction status, unspecified eye; Z87.81 Personal history of (healed) traumatic fracture; Z98.1 Arthrodesis status; Z80.3 Family history of malignant neoplasm of breast; Z83.3 Family history of diabetes mellitus; Z80.0 Family history of malignant neoplasm of digestive organs; B96.6 Bacteroides fragilis [B. fragilis] as the cause of diseases classified elsewhere
CPT/HCPCS: 36415; 74018; J3490; 71045; 71046; 80048; 80053; 81001; 82040; 83735; 85025; 86850; 86900; 86923; 87040; 87076; 87077; 87086; 87186; 87324; 88305; 88307; G0378; J0690; J0696; J1100; J1650; J1885; J2250; J2270; J2405; J2704; J3010; J3480; J7120; P9047; Q0162; C1765; J0330; J0780; J3475; J7030; J7040; J7050